=== PATIENT | male | born 1985 | race Caucasian/White ===

== ENCOUNTER → 2016-11-03 | Outpatient (CLI) | payer OTHER ==
--- NOTE | 2016-11-03 15:23 | REP ---
CT IACS WITHOUT CONTRAST: HISTORY: Bilateral otorrhea. The right internal auditory canal, cochlea, vestibule, and semicircular canals are normal in appearance. The ossicles are normal in configuration and position. The scutum and tegmen are intact. There is partial opacification of the right middle ear cavity and almost complete opacification of the mastoid air cells. There is no bone erosion. There is retraction of the right tympanic membrane. The left internal auditory canal, cochlea, vestibule, and semicircular canals are normal in appearance. The ossicles are normal in configuration and position. The scutum and tegmen are intact. The left middle ear cavity mastoid air cells are clear. There is retraction of the left tympanic membrane. Soft tissue density is present in the left external auditory canal. This may represent cerumen or possibly fluid. There is no bone erosion. Mucosal thickening is present in the ethmoid, maxillary, and sphenoid sinuses. Retention cysts or polyps are present in the right sphenoid sinus. The nasopharynx is normal in appearance. IMPRESSION: 1. There is partial opacification of the right middle ear cavity and almost complete opacification of the right mastoid air cells consistent with otitis. 2. There is soft tissue density in the left external auditory canal that may represent cerumen or possibly fluid. Signed by Slim Bonds MD 11/03/2016 03:29 P
== END ==
LOC: M RAD 14:22
PROVIDERS: ATTEND Otolaryngology
DX: H92.13 Otorrhea, bilateral (principal)

== ENCOUNTER → 2016-12-24 | Day surgery (SDC) | payer OTHER ==
[~2016-12-24] VITALS: Ht 182.9 cm; Wt 129.3 kg
[~2016-12-24] MED LIST: CIPRODEX OTIC SUSP 7.5ML As Ordered ONE; HYDROcodone/APAP LIQUID 7.5-325MG 15ML UDC (LORTAB ELIXIR) PO PRN; LIDOCAINE 2% INJ 100 MG/5 ML SDV (FOR ANES.) As Ordered ONE; LR 1,000 ML IV SCH; MIDAZOLAM INJ 2 MG/2 ML VIAL (J2250) As Ordered ONE; ONDANSETRON 4MG/2ML VIAL (J2405) As Ordered ONE; ONDANSETRON 4MG/2ML VIAL (J2405) IV PRN; PROA1AER INH; PROPOFOL 200 MG/20 ML VIAL As Ordered ONE; ROCURONIUM BROMIDE 50 MG/5 ML VIAL As Ordered ONE; SUCCINYLCHOLINE 100 MG/5 ML SYRINGE (J0330) As Ordered ONE; SYMB80INH INH; dexameTHASONE 4 MG/ML 1ML VIAL (J1100) IV ONE; fentaNYL 100 MCG/2 ML INJECTION (J3010) As Ordered ONE; fentaNYL 100 MCG/2 ML INJECTION (J3010) IV PRN
[2016-12-24 17:50] VITALS: BP 117/60
== END | disposition home or self-care (01) ==
LOC: M SDC 11:51
PROVIDERS: ATTEND Otolaryngology
DX: J35.3 Hypertrophy of tonsils with hypertrophy of adenoids (principal); H65.21 Chronic serous otitis media, right ear; J45.909 Unspecified asthma, uncomplicated; Z88.2 Allergy status to sulfonamides
CPT/HCPCS: 42821; 69436; 88302; J0330; J1100; J2250; J2405; J3010